=== PATIENT | female | born 1985 | race Caucasian/White ===

== ENCOUNTER 2018-01-05 22:20 | Emergency (ER) | payer OTHER ==
[~2018-01-05] VITALS: Ht 165.1 cm; Wt 104.3 kg
[~2018-01-05 22:20] MED LIST: CEPHALEXIN500 MG PO; IBUPROFEN600 MG PO; MUCINEX100 MG PO; OXYCODONE-ACET1 EAC1 PO; VITAFOL-OB+DHA1 EACH PO
[2018-01-05] MEDS ORDERED: KETOROLAC TROME10 MG PO (22:46)
== END 2018-01-05 22:50 | disposition home or self-care (01) ==
LOC: ED 22:20
DX: S93.402A Sprain of unspecified ligament of left ankle, initial encounter (principal); X50.9XXA Other and unspecified overexertion or strenuous movements or postures, initial encounter
CPT/HCPCS: 73610; 99283